=== PATIENT | female | born 1995 | race Two or more races ===

== ENCOUNTER 2018-09-20 20:19 | Emergency (ER) | payer BC, MEDICAID ==
[~2018-09-20] VITALS: Ht 160 cm; Wt 78.5 kg
[~2018-09-20 20:19] MED LIST: AZIT250T13 PO; HYDR10TA12 PO; LORA10TA41 PO; PHEN473S12 PO
--- NOTE | 2018-09-20 20:35 | NUR ---
To bed 4 ambulatory c/o progressive worsening mid-upper back pain since 1500 today. Pain is worse with movement. The patient describes the pain as 10/10, constant, achy, and radiating to chest. Pt denies urinary or bowel incontinence. pt aaox4 no acute distress noted, resp even and unlabored. pending er md greene.
[2018-09-20 20:54] LABS: BASOPHILS % (AUTO) 0.2 % (0.0-2.0); EOSINOPHILS % (AUTO) 1.3 % (0.0-6.0); HEMATOCRIT 38 % (33-45); HEMOGLOBIN 12.9 g/dL (11.5-14.8); LYMPHOCYTES # (AUTO) 3.1 /CMM (0.8-4.8); LYMPHOCYTES % (AUTO) 28.8 % (20.0-44.0); MEAN CORPUSCULAR HGB CONC 34 g/dl (31.0-36.0); MEAN CORPUSCULAR VOLUME 89 fL (82-100); MONOCYTES # (AUTO) 0.6 /CMM (0.1-1.30); MONOCYTES % (AUTO) 5.5 % (2.0-12.0); NEUTROPHILS # (AUTO) 6.9 /CMM (1.8-8.9); NEUTROPHILS % (AUTO) 64.2 % (43.0-81.0); PLATELET COUNT (AUTO) 208 /CMM (150-450); RED BLOOD CELL COUNT(AUTO) 4.23 MIL/uL (4.0-5.2); WHITE BLOOD COUNT (AUTO) 10.7 K/uL (4.3-11.0)
--- NOTE | 2018-09-20 20:58 | NUR ---
NICOLE coe at bedside.
[2018-09-20 21:12] LABS: CALCIUM, SERUM 8.5 mg/dL (8.5-10.1); CREATININE 0.8 mg/dL (0.6-1.3); POTASSIUM 3.7 mmol/L (3.5-5.1)
[2018-09-20 21:17] LABS: ALBUMIN 3.5 g/dL (3.4-5.0); BILIRUBIN,DIRECT 0.1 mg/dL (0.0-0.2); BILIRUBIN,TOTAL 0.5 mg/dL (0.2-1.0)
[2018-09-20] MEDS ORDERED: MORPHINE SULFATE INJ 2 MG/ML DISP.SYRIN IV ONE (21:30)
[2018-09-20] MEDS ORDERED: ONDANSETRON HCL/PF - ER 4 MG/2 ML VIAL IV ONE (21:30)
[2018-09-20 21:31] LABS: APPEARANCE,URINE Clear (CLEAR); BILIRUBIN,URINE Negative (NEGATIVE); BLOOD, URINE Negative Ery/uL (NEGATIVE); COLOR,URINE Yellow (YELLOW); KETONES,URINE Negative (NEGATIVE); LEUKOCYTE ESTERASE ,URINE Negative (NEGATIVE); NITRITE, URINE Negative (NEGATIVE); PH,URINE 6.5 (5.0-8.0); PROTEIN,URINE Negative (NEGATIVE); UGLUCOSE Negative (NEGATIVE); UROBILINOGEN,URINE 0.2 EU/dL (0.2)
[2018-09-20] MEDS ORDERED: MORPHINE SULFATE INJ 2 MG/ML DISP.SYRIN ONE (21:39)
[2018-09-20] MEDS ORDERED: ONDANSETRON HCL/PF 4 MG/2 ML VIAL ONE (21:39)
--- NOTE | 2018-09-20 21:40 | NUR ---
Pt transported to radiology for xrays.
--- NOTE | 2018-09-20 22:06 | NUR ---
er md at bedside talking to pt and pt mom regarding lab results and discharge.
[2018-09-20 22:07] VITALS: BP 127/64
--- NOTE | 2018-09-20 22:33 | NUR ---
IV removed. Catheter intact and site benign. Pressure and 4x4 applied to site. No bleeding noted. Patient discharged to home in stable condition. Written and verbal after care instructions given. Patient verbalizes understanding of instruction. ambulatory with a steady gait noted. advice pt not to drive or operate any machinery due to pt was given narcotic medicine. pt verbalize understanding. pt mom at beside to take pt home.
== END 2018-09-20 22:33 | disposition home or self-care (01) ==
LOC: ER 20:31
DX: K80.20 Calculus of gallbladder without cholecystitis without obstruction (principal); M54.6 Pain in thoracic spine; R10.13 Epigastric pain; Z60.2 Problems related to living alone
CPT/HCPCS: 36415; 72074; 76705; 80048; 80076; 81001; 83690; 84702; 84703; 85025; 93005; 96374; 96375; 99283; J2270; J2405 ×2; 81000-TC